=== PATIENT | male | born 1950 | race Caucasian/White ===

== ENCOUNTER 2016-09-18 17:57 | Emergency (ER) | payer OTHER, MEDICAID ==
[2016-09-18 18:04] VITALS: RESP 18
[2016-09-18] MEDS ORDERED: IBUPROFEN 600 MG TAB PO ONE ×2 (18:14→18:26)
[2016-09-18] MEDS ORDERED: ACETAMINOPHEN 500 MG TAB ONE (18:15)
--- NOTE | 2016-09-18 18:23 | EDPHY ---
H & P Stated Complaint: Seen by urgent care today, continued fever, SOB, chills - Personal History Current Tetanus/Diphtheria Vaccine: Yes Current Tetanus Diphtheria and Acellular Pertussis (TDAP): Yes - Medical/Surgical History Hx Asthma: No Hx Chronic Respiratory Disease: No Hx Diabetes: No Hx Cardiac Disease: No Hx Renal Disease: No Hx Cirrhosis: No Hx Alcoholism: No Hx HIV/AIDS: No Hx Splenectomy or Spleen Trauma: No Other PMH: HTN - Social History Smoking Status: Never smoked Time Seen by Provider: 09/18/16 18:12 HPI/ROS: CHIEF COMPLAINT: Cough, congestion, fever x3 days HISTORY OF PRESENT ILLNESS: 65-year-old old immunocompetent male seen at [facility] urgent care today for complaints of cough, congestion, fever, chills, sore throat x3 days. He had a chest x-ray obtained which showed a pneumonia, was given IM Rocephin, given prescription for Levaquin, antitussive and discharged told that if he developed fever to go to the ER. He was discharged from the urgent care, went home and developed a fever and came to the ER for evaluation. Complaining of being continually symptomatic. No new symptoms.No flu shot this season Denies: Chest pain, back pain, abdominal pain, nausea, vomiting, recent travel , rash, urinary abnormality. PRIMARY CARE PROVIDER: Tyler Arroyo REVIEW OF SYSTEMS: A ten point review of systems was performed and is negative with the exception of the items mentioned in the HPI PAST MEDICAL & SURGICAL HISTORY: No immunocompromised/supressed condition SOCIAL HISTORY: Nonsmoker, PHYSICAL EXAM (Prior to examination, patient consented to physical exam, hands were washed and my usual and customary physical exam procedures followed) 1) GENERAL: Well-developed, well-nourished, alert and oriented. Appears nontoxic . 2) HEAD: Normocephalic, atraumatic 3) HEENT: Pupils equal, round, reactive to light bilaterally. Sclera anicteric. Nasopharynx, oropharynx, clear, no lesions. No tonsillar enlargement. No tonsillar exudate. No trismus no drooling. Ears bilaterally with normal tympanic membranes. 4) NECK: Full range of motion, no meningeal signs. 5) LUNGS: Clear auscultation bilaterally, no wheezes, no rhonchi, no retractions. Breathing comfortably. Speaking full sentence 6) HEART: Regular rate and rhythm, no murmur, no heave, no gallop. 7) ABDOMEN: No guarding, no rebound, no focal tenderness, negative McBurney's, negative Kiser's, negative Rovsing's, negative peritoneal sign, 8) MUSCULOSKELETAL: Moving all extremities, no focal areas of tenderness, no obvious trauma. No peripheral edema or discoloration. 9) BACK: No CVA tenderness, no midline vertebral tenderness, no fluctuance, no step-off, no obvious trauma, no visual or palpable abnormality. 10) SKIN: No rash, no petechiae. DIFFERENTIAL DIAGNOSIS: in no particular order including but not limited to pneumonia, bronchitis, influenza (Maribeth Fierro) Constitutional: Initial Vital Signs Temperature (C) 37.6 C 09/18/16 18:01 Heart Rate 123 H 09/18/16 18:01 Respiratory Rate 18 09/18/16 18:01 Blood Pressure 158/85 H 09/18/16 18:01 O2 Sat (%) 92 09/18/16 18:01 O2 Delivery Mode Room Air Allergies/Adverse Reactions: No Known Allergies Allergy (Unverified 01/21/11 14:33) Home Medications: Medication Instructions Recorded Bupropion HCl 01/21/11 Halobetasol Propionate 01/21/11 Hydrochlorothiazide 01/21/11 Levothyroxine 01/21/11 Lisinopril 01/21/11 MELOXICAM 01/21/11 Omeprazole 01/21/11 SIMVASTATIN 01/21/11 amLODIPine BESYLATE 01/21/11 HYDROCODONE BIT/ACETAMINOPHEN 1 each PO 01/23/11 [Hydrocodone-Apap 10-500 Tablet] Oseltamivir Phosphate [Tamiflu] 75 mg PO BIDMEAL 5 Days 09/18/16 Medical Decision Making ED Course/Re-evaluation: 6:50 p.m.: Patient informed has positive influenza. Starting the patient on Tamiflu. His pulse oxygenation is in the mid 90s, pulse rate in the mid 90s. I do not think the patient is septic. He is mentating clearly. I do not think that hospitalization is currently indicated. Recommend close follow-up with PCP. Usual and customary respiratory precautions and instructions provided. The patient is here with his , Carisa Serna, [birth year], notes that she is asymptomatic but concerned given that she lives with him and she has had multiple eye surgeries. She requests Tamiflu prophylactically which I provided her via handwritten script (Maribeth Fierro) The patient was evaluated and managed by the physician regional administrative assistant. I have reviewed this chart and I agree with the findings and plan of care as documented , as indicated by my signature. I am the secondary supervising physician. ( Yvette Man) - Data Points Laboratory Results: 09/18/16 18:26 Influenza Typ A,B (DFA) POSITIVE FOR FLU A H (NEGATIVE) Medications Given: Discontinued Medications Acetaminophen (Tylenol) 1,000 mg PO EDNOW ONE Stop: 09/18/16 18:27 Last Admin: 09/18/16 18:28 Dose: 1,000 mg Ibuprofen (Motrin) 600 mg PO EDNOW ONE Stop: 09/18/16 18:27 Last Admin: 09/18/16 18:28 Dose: 600 mg Departure - Departure Disposition: Home, Routine, Self-Care Clinical Impression: Influenza, pneumonia Condition: Good Instructions: Influenza (ED) Additional Instructions: Return to the emergency department immediately for change in breathing habits, change in voice, change in swallowing habits, change in mental status, or any other symptoms that concern you. Referrals: Letha Tolnetino PA [Primary Care Provider] - 1-2 days without fail Prescriptions: Oseltamivir Phosphate [Tamiflu] 75 mg PO BIDMEAL 5 Days
[2016-09-18] MEDS ORDERED: ACETAMINOPHEN 500 MG TAB PO ONE (18:26)
[2016-09-18 19:04] VITALS: PULSE 95; TEMP 99.1
[2016-09-18 19:27] VITALS: BP 142/84; O2SAT 98
== END 2016-09-18 19:27 | disposition home or self-care (01) ==
DX: J11.00 Influenza due to unidentified influenza virus with unspecified type of pneumonia (principal); I10 Essential (primary) hypertension

== ENCOUNTER 2017-08-10 10:40 | Emergency (ER) | payer MEDICAID, OTHER ==
[2017-08-10 10:47] VITALS: RESP 16; TEMP 98.1
[2017-08-10] MEDS ORDERED: SULFAMETHOX/TMP 800/160 MG 1 TAB PO ONE (11:03)
--- NOTE | 2017-08-10 11:08 | EDPHY ---
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 He was seen at a work comp clinic in [place] where he was noted to have a fracture of a bone of his hand, casted, the laceration was left elbow was sutured. He was started on prophylactic Keflex at that time but notes progressive halo erythema. No lymphangitic streaking. No axillary pain or adenopathy. No fever or chills. No nausea or vomiting. No flu-like symptoms. PHYSICAL EXAM (Prior to examination, patient consented to physical exam, hands were washed and my usual and customary physical exam procedures followed) 1) GENERAL: Well-developed, well-nourished, alert and oriented. Appears to be in no acute distress. 2) HEAD: Normocephalic 3) HEENT: sclera anicteric 4) LUNGS: Breathing comfortably. 5) SKIN: Erythema 6) MUSCULOSKELETAL: Left upper extremity shortness splint in place. Neurovascular intact distally. Left dorsal elbow sutures in place, halo erythema extending approximately 3 cm in radius. No lymphangitic streaking. Soft compartments. No crepitus. No axillary adenopathy or tenderness. No crepitus 7) NEUROLOGIC: Distal neurovascular status is intact. DIFFERENTIAL DIAGNOSIS: In no particular order including but not limited to cellulitis, olecranon bursitis, necrotizing fasciitis Smoking Status: Never smoked Constitutional: Initial Vital Signs Temperature (C) 36.7 C 08/10/17 10:44 Heart Rate 78 08/10/17 10:44 Respiratory Rate 16 08/10/17 10:44 Blood Pressure 128/75 H 08/10/17 10:44 O2 Sat (%) 96 08/10/17 10:44 O2 Delivery Mode Room Air Allergies/Adverse Reactions: No Known Allergies Allergy (Verified 08/10/17 10:41) Home Medications: Medication Instructions Recorded Bupropion HCl 01/21/11 Halobetasol Propionate 01/21/11 Hydrochlorothiazide 01/21/11 Levothyroxine 01/21/11 Lisinopril 01/21/11 MELOXICAM 01/21/11 Omeprazole 01/21/11 SIMVASTATIN 01/21/11 amLODIPine BESYLATE 01/21/11 HYDROCODONE BIT/ACETAMINOPHEN 1 each PO 01/23/11 [Hydrocodone-Apap 10-500 Tablet] CEPHALEXIN 08/10/17 Cephalexin [Keflex] 500 mg PO TID 10 Days cap 08/10/17 Sulfamethox/Tmp 800/160 mg 1 tab PO BID@1000,2200 10 Days tab 08/10/17 [Bactrim Ds] MDM/Departure - MDM ED Course/Re-evaluation: X-ray obtained on this patient showing no fracture, no radiopaque foreign body. His sutures have been removed by myself and will wound will be allowed to heal via secondary intention. I am adding Bactrim to his medication regimen. I do not think that hospitalization/IV antibiotics are currently indicated. However should he fail oral therapy given necessitate hospital admission. He will return to the ER in 2 days for recheck as it is Sunday on a long holiday weekend. Care of patient under supervision of secondary supervising physician Dr Trivedi with whom I discussed case - Depart Disposition: Home, Routine, Self-Care Clinical Impression: Septic olecranon bursitis of left elbow Condition: Good Instructions: Elbow Bursitis (ED) Additional Instructions: Return to the ER if you develop redness, swelling, discharge, warmth to the wound, red streaks going up your arm, or any other symptoms that concern you. Prescriptions: Cephalexin [Keflex] 500 mg PO TID 10 Days cap Sulfamethox/Tmp 800/160 mg [Bactrim Ds] 1 tab PO BID@1000,2200 10 Days tab Referrals: Return, to the ER in 2 days for recheck [Other] - 08/12/17
[2017-08-10 12:08] VITALS: BP 132/78; PULSE 67; O2SAT 93
== END 2017-08-10 12:08 | disposition home or self-care (01) ==
DX: M70.22 Olecranon bursitis, left elbow (principal)

== ENCOUNTER 2017-08-12 07:35 | Emergency (ER) | payer OTHER ==
[2017-08-12 07:39] VITALS: BP 132/74; PULSE 69; RESP 16; TEMP 97.7; O2SAT 97
--- NOTE | 2017-08-12 07:42 | EDPHY ---
H & P Stated Complaint: wound recheck Source: Patient - Medical/Surgical History Hx Asthma: No Hx Chronic Respiratory Disease: No Hx Diabetes: No Hx Cardiac Disease: No Hx Renal Disease: No Hx Cirrhosis: No Hx Alcoholism: No Hx HIV/AIDS: No Hx Splenectomy or Spleen Trauma: No Other PMH: HTN, hyperlipidemia - Social History Smoking Status: Never smoked Constitutional: Initial Vital Signs Temperature (C) 36.5 C 08/12/17 07:36 Heart Rate 69 08/12/17 07:36 Respiratory Rate 16 08/12/17 07:36 Blood Pressure 132/74 H 08/12/17 07:36 O2 Sat (%) 97 08/12/17 07:36 O2 Delivery Mode Room Air Allergies/Adverse Reactions: No Known Allergies Allergy (Verified 08/10/17 10:41) Home Medications: Medication Instructions Recorded Bupropion HCl 01/21/11 Halobetasol Propionate 01/21/11 Hydrochlorothiazide 01/21/11 Levothyroxine 01/21/11 Lisinopril 01/21/11 MELOXICAM 01/21/11 Omeprazole 01/21/11 SIMVASTATIN 01/21/11 amLODIPine BESYLATE 01/21/11 HYDROCODONE BIT/ACETAMINOPHEN 1 each PO 01/23/11 [Hydrocodone-Apap 10-500 Tablet] CEPHALEXIN 08/10/17 Cephalexin [Keflex] 500 mg PO TID 10 Days cap 08/10/17 Sulfamethox/Tmp 800/160 mg 1 tab PO BID@1000,2200 10 Days tab 08/10/17 [Bactrim Ds] Medical Decision Making ED Course/Re-evaluation: CHIEF COMPLAINT: Wound check. HISTORY OF PRESENT ILLNESS: The patient is a 66-year-old male here for a wound check. The patient was seen here 2 days ago with septic olecranon bursitis after a mechanical fall. He was on Keflex and started on Bactrim while in the ED. The patient presents today for reevaluation of his wound. The elbow inflammation and redness have decreased. The patient denies fever, increased pain, or worsening of his wound. REVIEW OF SYSTEMS: A 10 point review of systems was performed and is negative with the exception of the elements mentioned in the history of present illness. PHYSICAL EXAM: HR, BP, O2 Sat, RR. Temp noted General Appearance: Alert, well hydrated, appropriate, and non-toxic appearing. Head: Atraumatic without scalp tenderness or obvious injury Eyes: Pupils equal, round, reactive to light and accommodation, EOMI, no trauma , no injection. Respiratory: No retractions, no distress, no wheezes, and no accessory muscle use. Lungs are clear to auscultation bilaterally. Cardiovascular: Regular rate and rhythm, no murmurs, rubs, or gallops. Bilateral carotid, radial, dorsalis pedis, and posterior tibial pulses intact. Good capillary refill all extremities. Musculoskeletal: No evidence of worsening infection. No redness, swelling, drainage. No lymphangitic streaking. Soft compartments. Neurological: Alert, appropriate, and interactive. The patient has normal DTRs and non-focal cranial nerves, motor, sensory, and cerebellar exam. Skin: No rashes, good turgor, no nodules on palpation. Past medical history: Hand fracture, septic olecranon bursitis. Past surgical history: Denies. Family history: Noncontributory. Social history: . DIFFERENTIAL DIAGNOSIS: The differential diagnosis for the patient's wound includes but is not limited to cellulitis, olecranon bursitis, rash, necrotizing fascitis. MEDICAL DECISION MAKING: Patient presents for wound check. He was diagnosed with septic olecranon bursitis and started on Keflex and Bactrim. His wound inflammation and redness have decrease since the last visit. The patient is afebrile. He has no further complaints. There is no evidence of infection or compartment syndrome. I recommend the patient continue with his current dual antibiotic treatment. He will have his wound re-evaluated by his orthopedic surgeon. The patient is safe for discharge home. Departure - Departure Disposition: Home, Routine, Self-Care Clinical Impression: Visit for wound check Condition: Good Instructions: Acute Wounds (ED) Additional Instructions: Continue taking your course of antibiotics. Return to the Emergency Department with increased pain, swelling, redness of the wound. Referrals: Keiry Smith MD [Primary Care Provider] - As per Instructions Report Scribed for: Jak Trivedi Report Scribed by: Jeannette Molina Date of Report: 08/12/17 Time of Report: 08:07
== END 2017-08-12 07:46 | disposition home or self-care (01) ==
DX: Z48.01 Encounter for change or removal of surgical wound dressing (principal); I10 Essential (primary) hypertension
CPT/HCPCS: G0463